=== PATIENT | male | born 1995 | race Caucasian/White ===

== ENCOUNTER 2020-01-22 13:20 | Emergency (ER) | payer BC ==
[2020-01-22 13:31] VITALS: BP 134/80; PULSE 74
--- NOTE | 2020-01-22 13:53 | EDM.PDOC ---
ED HPI GENERAL MEDICAL PROBLEM - General Chief Complaint: Lower Extremity Injury/Pain Stated Complaint: NAIL IN FOOT Time Seen by Provider: 01/22/20 13:35 Source of Information: Reports: Patient History Limitations: Reports: No Limitations - History of Present Illness INITIAL COMMENTS - FREE TEXT/NARRATIVE: This 24 yo male patient reports to the ED due to a nail through his right foot. 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 As the nail gun hit his foot, the nailer went off sending the nail through the patient shoe and foot. Onset: Today Duration: Minutes: Location: Reports: Lower Extremity, Right Quality: Reports: Ache, Dull Severity: Moderate Improves with: Reports: None Worsens with: Reports: None Context: Reports: Other Associated Symptoms: Reports: No Other Symptoms - Related Data Allergies Allergy/AdvReac Type Severity Reaction Status Date / Time No Known Allergies Allergy Verified 01/22/20 13:28 Home Meds: Home Meds . [No Known Home Meds] 08/22/14 [History] Past Medical History - Past Health History Medical/Surgical History: Denies Medical/Surgical History HEENT History: Reports: None Cardiovascular History: Reports: None Respiratory History: Reports: None Gastrointestinal History: Reports: None Genitourinary History: Reports: None Musculoskeletal History: Reports: None Neurological History: Reports: Concussion Psychiatric History: Reports: None Endocrine/Metabolic History: Reports: None Hematologic History: Reports: None Immunologic History: Reports: None Oncologic (Cancer) History: Reports: None Dermatologic History: Reports: None - Infectious Disease History Infectious Disease History: Reports: Chicken Pox - Past Surgical History Head Surgeries/Procedures: Reports: None Social & Family History - Family History Family Medical History: Noncontributory - Tobacco Use Smoking Status *Q: Never Smoker Second Hand Smoke Exposure: No - Caffeine Use Caffeine Use: Reports: None - Recreational Drug Use Recreational Drug Use: No Review of Systems - Review of Systems Review Of Systems: Comprehensive ROS is negative, except as noted in HPI. ED EXAM, GENERAL - Physical Exam Exam: See Below Exam Limited By: No Limitations General Appearance: Alert, WD/WN, Mild Distress Eye Exam: Bilateral Eye: EOMI, Normal Inspection, PERRL Ears: Normal External Exam, Normal Canal, Hearing Grossly Normal, Normal TMs Nose: Normal Inspection, Normal Mucosa, No Blood Throat/Mouth: Normal Inspection, Normal Lips, Normal Teeth, Normal Gums, Normal Oropharynx, Normal Voice, No Airway Compromise Head: Atraumatic, Normocephalic Neck: Normal Inspection, Supple, Non-Tender, Full Range of Motion Respiratory/Chest: No Respiratory Distress, Lungs Clear, Normal Breath Sounds, No Accessory Muscle Use, Chest Non-Tender Cardiovascular: Normal Peripheral Pulses, Regular Rate, Rhythm, No Edema, No Gallop, No JVD, No Murmur, No Rub GI/Abdominal: Normal Bowel Sounds, Soft, Non-Tender, No Organomegaly, No Distention, No Abnormal Bruit, No Mass (Male) Exam: Deferred Rectal (Males) Exam: Deferred Back Exam: Normal Inspection, Full Range of Motion, NT Extremities: Leg Pain (left foot pain) Neurological: Alert, Oriented, CN II-XII Intact, Normal Cognition, Normal Reflexes, No Motor/Sensory Deficits Psychiatric: Normal Affect Lymphatic: No Adenopathy Course - Vital Signs Last Recorded V/S: Last Vital Signs Temp 36.7 C 01/22/20 13:28 Pulse 74 01/22/20 13:28 Resp 16 01/22/20 13:28 BP 134/80 01/22/20 13:28 Pulse Ox 99 01/22/20 13:28 - Orders/Labs/Meds Orders: Active Orders 24 hr Category Date Time Status Vaccines to be Administered [RC] PER UNIT ROUTINE Care 01/22/20 14:53 Ordered Bacitracin [Bacitracin Oint 1 GM] Med 01/22/20 15:17 Once 1 dose TOP ONETIME ONE Medication Orders Bacitracin (Bacitracin Oint 1 Gm) 1 dose TOP ONETIME ONE Stop: 01/22/20 15:18 Meds: Medications Generic Name Dose Route Start Last Admin Trade Name Freq PRN Reason Stop Dose Admin Bacitracin 1 dose 01/22/20 15:17 Bacitracin Oint 1 Gm TOP 01/22/20 15:18 ONETIME ONE Discontinued Medications Generic Name Dose Route Start Last Admin Trade Name Freq PRN Reason Stop Dose Admin Diphtheria/Tetanus/Acell Pertussis 0.5 ml 01/22/20 14:53 01/22/20 15:05 Adacel IM 01/22/20 14:54 0.5 ml .ONCE ONE Administration Lidocaine HCl 30 ml 01/22/20 14:10 01/22/20 15:05 Xylocaine-Mpf 1% INJECT 01/22/20 14:11 30 ml ONETIME ONE Administration - Re-Assessments/Exams Free Text/Narrative Re-Assessment/Exam: 01/22/20 14:29 A call was placed to Dr. Robertson ([facility] in [place]). Dr. Robertson advised to remove the nail, rinse out the wound, put the patient on antibiotics and follow-up with him on Sunday. The area was anesthetized with lidocaine and an attempt was made to remove the nail. After exerting pressure to the area with no movement of the nail, a call was placed to Dr. Adkins. Dr. Adkins agreed to come to the ED to visit the patient. 01/22/20 15:18 Dr. Adkins came into the ED to remove the nail. Further anesthesia was necessary prior to complete removal. The wound was irrigated well after nail was removed. Departure - Departure Time of Disposition: 15:22 Disposition: Home, Self-Care 01 Condition: Fair Clinical Impression: Foreign body in right foot Qualifiers: Encounter type: initial encounter Qualified Code(s): S90.851A - Superficial fo reign body, right foot, initial encounter - Discharge Information *PRESCRIPTION DRUG MONITORING PROGRAM REVIEWED*: Not Applicable *COPY OF PRESCRIPTION DRUG MONITORING REPORT IN PATIENT KYE: Not Applicable Forms: ED Department Discharge Care Plan Goals: The patient and mother were advised of the examination and x-ray results during the visit. The nail was removed by Dr. Adkins while the patient was in the ED. The patient was encouraged to rest and elevate his right foot. The patient was discharged with a script for Augmentin (875/125) to take 1 by mouth 2 times per day for 10 days. The patient was encouraged to monitor healing of the wound. The patient was encouraged to call Dr. Adkins if there are any complications. If the patient has any additional symptoms or concerns, the patient should either return to the emergency department or visit his primary care facility. Sepsis Event Note (ED) - Evaluation Sepsis Screening Result: No Definite Risk - Focused Exam Vital Signs: Vital Signs Temp Pulse Resp BP Pulse Ox 01/22/20 13:28 36.7 C 74 16 134/80 99 - My Orders Last 24 Hours: My Active Orders 01/22/20 14:53 Vaccines to be Administered [RC] PER UNIT ROUTINE 01/22/20 15:17 Bacitracin [Bacitracin Oint 1 GM] 1 dose TOP ONETIME ONE - Assessment/Plan Last 24 Hours: My Active Orders 01/22/20 14:53 Vaccines to be Administered [RC] PER UNIT ROUTINE 01/22/20 15:17 Bacitracin [Bacitracin Oint 1 GM] 1 dose TOP ONETIME ONE
[2020-01-22] MEDS ORDERED: Lidocaine 1% 30 ML SDV INJECT ONE (14:10)
--- NOTE | 2020-01-22 14:42 | CR ---
EXAMINATION: Foot 3V Rt SEX: Male AGE: 24 years CLINICAL HISTORY: 24-year-old male with foreign body (nail) in forefoot. "Nail gun". INTERPRETATION: Abnormal. 1. Solitary 8 cm long nail that appears embedded in the middle phalanx, middle (third) toe, right forefoot. 2. No associated fracture or obvious periosteal involvement. 3. No other foreign bodies or sign of forefoot fracture/joint dislocation. Note: The metallic nail is never clearly on these views from the middle phalanx, middle (third) toe.
[2020-01-22] MEDS ORDERED: Diphtheria,Pertussis(Acell),Tetanus Vaccine 0.5 ML SDV IM ONE (14:53)
[2020-01-22] MEDS ORDERED: Bacitracin Oint 1 GM U/D Packet TOP ONE (15:17)
--- NOTE | 2020-01-22 15:40 | PCM.CONSN ---
- General Info Date of Service: 01/22/20 Admission Dx/Problem (Free Text): Nail in right 3rd toe Subjective Update: 24 y/o male presents to ED with his mother today for nail in the right 3rd toe. Pt states he was working when a nail gun slipped out of his hand, went off sending a nail into his foot through his shoe. He presented to the ED right away. The did numb the area and he reports the toe is still feeling numb, no pain. Functional Status: Reports: Pain Controlled - Review of Systems General: Reports: No Symptoms - Patient Data Vitals - Most Recent: Last Vital Signs Temp 36.7 C 01/22/20 13:28 Pulse 74 01/22/20 13:28 Resp 16 01/22/20 13:28 BP 134/80 01/22/20 13:28 Pulse Ox 99 01/22/20 13:28 Weight - Most Recent: 89.358 kg Med Orders - Current: Current Medications Discontinued Medications Bacitracin (Bacitracin Oint 1 Gm) 1 dose TOP ONETIME ONE Stop: 01/22/20 15:18 Diphtheria/Tetanus/Acell Pertussis (Adacel) 0.5 ml IM .ONCE ONE Stop: 01/22/20 14:54 Last Admin: 01/22/20 15:05 Dose: 0.5 ml Documented by: Lidocaine HCl (Xylocaine-Mpf 1%) 30 ml INJECT ONETIME ONE Stop: 01/22/20 14:11 Last Admin: 01/22/20 15:05 Dose: 30 ml Documented by: - Exam General: Alert, Oriented Physical Findings Comments:: Right LE exam: 2/4 DP and PT pulses to right foot. 3rd digit with large nail from dorsal lateral to plantar medial at level of DIPJ. Numbness to the toe, they did do lidocaine injection prior to my exam. Upon removal of screw there was good bleeding to the area, I was able to move the DIPJ without any crepitus and it did feel that both the flexor and extensor tendons were intact. Toe in good alignment after removal of screw. Right foot xrays reveal large screw to 3rd digit just missing the middle phalanx and DIPJ. Not able to visualize any obvious fractures to the digit. Sepsis Event Note - Evaluation Sepsis Screening Result: No Definite Risk - Focused Exam Vital Signs: Vital Signs Temp Pulse Resp BP Pulse Ox 01/22/20 13:28 36.7 C 74 16 134/80 99 Date Exam was Performed: 01/22/20 Time Exam was Performed: 15:35 Consult PN Assessment/Plan Procedures: Procedures CT HEAD/BRAIN W/O DYE (07/21/16) CT MAXILLOFACIAL W/O DYE (07/21/16) EMERGENCY DEPT VISIT (07/21/16) EMERGENCY DEPT VISIT (08/22/14) X-RAY EXAM OF SHOULDER (08/22/14) Problem List Initiated/Reviewed/Updated: Yes Plan: 24 y/o male with nails in right 3rd digit- LIdocaine was injected prior to my exam, I did inject another 1 cc of the lidocaine prior to removing the screw. The 3rd digit was stabilized and the screw was completely removed, after removal the area was irrigated with NS to both the entry and exit point of the screw being sure to get the area copiously irrigated. The toe have good, fluid ROM after removal and tendons/joint feel intact, toe in good alignment. I applied bacitracin, gauze and coban dressing. He is to change once daily. Wear hard soled shoe, mother states they do have a surgical shoe at home and he will wear that for the next 3-4 days. Can then try to transition into a good hard soled tennis shoe. He was sent home on Augmentin BID x 10 days, they will watch for any increased redness or SOI, will call my office with any concerns. I can see him for follow up in 10-14 days as needed.
== END 2020-01-22 15:34 | disposition home or self-care (01) ==
LOC: DL.ED 13:20
DX: S90.851A Superficial foreign body, right foot, initial encounter (principal); Z23 Encounter for immunization; W45.8XXA Other foreign body or object entering through skin, initial encounter
CPT/HCPCS: 28190; 73620; 90471; 90715; 99283; J2001; 11760